=== PATIENT | female | born 2000 | race Caucasian/White ===

== ENCOUNTER 2021-07-24 10:42 | Emergency (ER) | payer OTHER ==
[~2021-07-24] VITALS: Ht 175.3 cm; Wt 90.7 kg
== END 2021-07-24 13:46 | disposition home or self-care (01) ==
LOC: ER 10:42
DX: B34.9 Viral infection, unspecified (principal); Z20.822 Contact with and (suspected) exposure to COVID-19

== ENCOUNTER 2024-04-17 21:42 | Emergency (ER) | payer OTHER ==
[~2024-04-17] VITALS: Ht 177.8 cm; Wt 111.1 kg
[2024-04-17] MEDS ORDERED: ONDANSETRON HCL 2 MG/ML VIAL IV ONE (22:30)
[2024-04-17] MEDS ORDERED: 0.9 % SODIUM CHLORIDE 1,000 ML IV ONE (22:30)
[2024-04-17] MEDS ORDERED: KETOROLAC TROMETHAMINE 60 MG VIAL IM ONE (22:30)
[2024-04-17] MEDS ORDERED: FAMOtidine 10 MG/ML (4ML VIAL) IV ONE (22:30)
[2024-04-17 23:24] LABS: HEMATOCRIT 36.6 % (36.0-45.00); MEAN CELL VOLUME 91.9 fL (80.00-100.00); MEAN CORPUSCULAR HEMOGLOBIN 32.5 pg (27.00-32.0); MEAN CORPUSCULAR HGB CONC 35.4 g/dl (32.0-36.0); PLATELET COUNT 231 K/uL (150-450); RED BLOOD COUNT 3.98 M/uL (4.00-6.00); RED CELL DISTRIBUTION WIDTH 13.2 % (11.5-14.5)
[2024-04-17 23:41] LABS: ALBUMIN 3.8 gm/dL (3.4-5.0); ALKALINE PHOSPHATASE 54 U/L (50-136); ALT/SGPT 30 U/L (12-78); AMYLASE 55 U/L (25-115); ANION GAP 7 (10.0-20.0); AST/SGOT 17 U/L (15-37); BLOOD UREA NITROGEN 14 mg/dL (7-18); BUN CREA RATIO 17 (7.0-25.0); CARBON DIOXIDE 31 mEq/L (21-32); CHLORIDE 108 mmol/L (98-107); CREATININE SERUM 0.82 mg/dL (0.55-1.02); GFR 85.65; GLOBULINA 4.1 G/DL (2.4-3.5); GLUCOSE FASTING 100 mg/dL (65-100); LIPASE 31 U/L (13-75); OSMOLALITY SERUM 284 MOSM/KG (275-295); POTASSIUM 3.87 mEq/L (3.5-5.1); SODIUM 142 mmol/L (136-145); TOTAL PROTEIN 7.9 gm/dL (6.4-8.2)
[2024-04-17 23:44] LABS: HCG QUANTITATIVE < 1 mUI/mL (1-3)
[2024-04-18 00:03] LABS: URINE APPEARANCE Clear; URINE BILIRRUBIN Negative (NEGATIVE); URINE BLOOD Negative; URINE COLOR Yellow; URINE GLUCOSE Negative (NEGATIVE); URINE KETONE Negative (NEGATIVE); URINE LEUKOCYTE Negative; URINE NITRATE Negative; URINE PROTEIN Negative (NEGATIVE)
[2024-04-18 00:06] LABS: URINE BACTERIA 965.1 uL (0.0-1933); URINE EPITHELIAL CELLS 50.9 uL (0.0-38.8); URINE RBC 20.9 uL (0.0-20.8); URINE WBC 26.1 uL (0.0-23.2)
[2024-04-18 00:07] LABS: URINE CAST 0.15 uL (0.0-1.40)
[2024-04-18] MEDS ORDERED: HYOSCYAMINE SULFATE 0.125 MG TAB.SUBL SL STA (03:57)
[2024-04-18] MEDS ORDERED: PEPCID40 MG PO (06:47)
[2024-04-18] MEDS ORDERED: ZOFRAN8 MG PO (06:47)
[2024-04-18] MEDS ORDERED: LEVSIN/SL0.125 MG SL (06:47)
== END 2024-04-18 07:59 ==
LOC: ER 21:44
PROVIDERS: General Practice
DX: R10.12 Left upper quadrant pain (principal); R11.2 Nausea with vomiting, unspecified; K80.20 Calculus of gallbladder without cholecystitis without obstruction

== ENCOUNTER 2024-09-04 05:04 | Day surgery (SDC) | payer OTHER ==
[2024-08-31 10:59] VITALS: BP 113/73
[2024-08-31 11:06] LABS: HEMATOCRIT 39.1 % (36.0-45.00); HEMOGLOBIN 13.5 g/dL (12.0-15.00); MEAN CELL VOLUME 93.8 fL (80.00-100.00); MEAN CORPUSCULAR HEMOGLOBIN 32.5 pg (27.00-32.0); MEAN CORPUSCULAR HGB CONC 34.6 g/dl (32.0-36.0); PLATELET COUNT 257 K/uL (150-450); RED BLOOD COUNT 4.16 M/uL (4.00-6.00); RED CELL DISTRIBUTION WIDTH 13.2 % (11.5-14.5)
[2024-08-31 11:28] LABS: INR 0.99; PARTIAL THROMBOPLASTIN TIME 26.3 SECONDS (22.0-34.0); PROTHROMBIN TIME 10.8 SECONDS (9.0-11.5)
[2024-08-31 11:37] LABS: BILIRUBIN TOTAL 0.47 mg/dL (0.3-1.2); CALCIUM 9.6 mg/dL (8.5-10.1); CREATININE SERUM 0.77 mg/dL (0.55-1.02); GFR 92.1; GLOBULINA 3.8 G/DL (2.4-3.5); POTASSIUM 4.48 mEq/L (3.5-5.1); TOTAL PROTEIN 7.8 gm/dL (6.4-8.2)
[2024-08-31 11:43] LABS: URINE APPEARANCE Clear; URINE BILIRRUBIN Negative (NEGATIVE); URINE BLOOD Negative; URINE COLOR Yellow; URINE GLUCOSE Negative (NEGATIVE); URINE KETONE Negative (NEGATIVE); URINE LEUKOCYTE Small; URINE NITRATE Negative; URINE PROTEIN Negative (NEGATIVE); URINE UROBILINOGEN 0.2 E.U./dl
[2024-08-31 11:50] LABS: URINE BACTERIA 4261.8 uL (0.0-1933); URINE EPITHELIAL CELLS 69.1 uL (0.0-38.8); URINE RBC 3.5 uL (0.0-20.8); URINE WBC 39.4 uL (0.0-23.2)
[2024-08-31 12:33] LABS: URINE CAST 0.29 uL (0.0-1.40)
[~2024-09-04] VITALS: Ht 175.3 cm; Wt 111.1 kg
[~2024-09-04 05:04] MED LIST: LEVSIN/SL0.125 MG SL; PEPCID40 MG PO; ZOFRAN8 MG PO
[2024-09-04] MEDS ORDERED: CEFAZOLIN SODIUM 1,000 MG VIAL ONE ×2 (07:02→11:08)
[2024-09-04] MEDS ORDERED: BUPIVACAINE HCL/MPF 0.5% 30ML VIAL ONE (07:02)
[2024-09-04] MEDS ORDERED: SUGAMMADEX SODIUM 200 MG/2 ML VIAL IV ONE (08:36)
[2024-09-04] MEDS ORDERED: FAMOTIDINE/PF 20 MG/10 ML SYRINGE IV SCH (10:45)
[2024-09-04] MEDS ORDERED: CEFAZOLIN SODIUM 1,000 MG VIAL IV SCH (10:45)
[2024-09-04] MEDS ORDERED: FAMOTIDINE/PF 20 MG/2 ML VIAL ONE (11:08)
== END 2024-09-04 14:10 | disposition home or self-care (01) ==
LOC: CIR.AMB 05:04
PROVIDERS: ATTEND Specialist
DX: K80.10 Calculus of gallbladder with chronic cholecystitis without obstruction (principal)